=== PATIENT | female | born 1965 | race Caucasian/White ===

== ENCOUNTER 2020-04-12 15:02 | Emergency (ER) | payer MEDICAID ==
--- NOTE | 2020-04-12 16:04 | EDM.PDOC ---
ED HPI GENERAL MEDICAL PROBLEM - General Stated Complaint: HIT HEAD Time Seen by Provider: 04/12/20 15:45 Source of Information: Reports: Patient History Limitations: Reports: No Limitations - History of Present Illness INITIAL COMMENTS - FREE TEXT/NARRATIVE: Patient comes emergency department today with complaints of a scalp laceration that is draining. This patient awoke Friday morning at home after going to the bar with a towel wrapped around her head. After she remove the towel she noted that she had a rather large laceration on the parietal region of her scalp. She is unsure of how the laceration happened to her scalp. She has been cleaning it twice daily and it has been draining and she is concerned for infection. She is unsure if she had a loss of consciousness. She does not complain of a headache visual disturbances weakness dizziness lightheadedness. No nausea or vomiting. No visual acuity changes. No neck pain. No fever no chills. Her tetanus immunization is up-to-date she reports. She denies any other injuries or complaints and just really is concerned of the laceration on her scalp. Head Pain Score (Numeric/FACES): 4 - Related Data Allergies Allergy/AdvReac Type Severity Reaction Status Date / Time No Known Allergies Allergy Verified 04/12/20 21:25 Home Meds: Home Meds FLUoxetine HCl [Prozac] 40 mg PO DAILY 02/08/20 [History] Psyllium Husk [Metamucil] 1 packet PO DAILY PRN 02/08/20 [History] hydroCHLOROthiazide [Hydrochlorothiazide] 12.5 mg PO DAILY 02/08/20 [History] lisinopriL [Lisinopril] 40 mg PO DAILY 02/08/20 [History] Past Medical History Cardiovascular History: Reports: Angina, Heart Failure, Hypertension, Other (See Below) Other Cardiovascular History: BRADYCARDIA Psychiatric History: Reports: Anxiety Endocrine/Metabolic History: Reports: Other (See Below) Other Endocrine/Metabolic History: METABOLIC SYNDROME - Past Surgical History Female Surgical History: Reports: Section, Tubal Ligation Musculoskeletal Surgical History: Reports: Carpal Tunnel, ORIF ED ROS GENERAL - Review of Systems Review Of Systems: Comprehensive ROS is negative, except as noted in HPI. ED EXAM, HEAD INJURY - Physical Exam Exam: See Below Exam Limited By: No Limitations General Appearance: Alert, WD/WN, No Apparent Distress Head: Normocephalic, Scalp Lacerations (The patient has an inverted Y scalp laceration in the parietal region. The top or tail of the Y is 6cm and the two arms of the Y are 5 and 7 cms in length. The skin is well approximated. There is good epithelialization of the scalp laceration. There is some scabbing with some clear serous drainage. There is no induration swelling erythema purulent discharge. There is no crepitus bony deformity contusions abrasions or other signs of trauma to the scalp.). No: Scalp Swelling, Scalp Abrasions, Scalp Ecchymosis, Scalp Hematoma, Scalp Tenderness, Active Bleeding, Hays's Sign, Flap, Facial Abrasions, Facial Ecchymosis, Facial Lacerations, Facial Swelling, Sinus Tenderness, Facial Tenderness, Raccoon Eyes Nexus Criteria: No: Posterior, Midline Cervical Tenderness, Evidence of Intoxication, Altered Level of Consciousness, Focal Neurological Deficit, Painful Distraction Injuries Eyes: Bilateral Eye: EOMI, PERRL Ears: Normal External Exam, Normal Canal, Normal TMs Nose: Normal Inspection, Normal Mucousa Throat/Mouth: Normal Inspection, Normal Lips, Normal Voice Neck: Non-Tender, Full Range of Motion, Normal Alignment Respiratory: No Respiratory Distress, Lungs Clear, Normal Breath Sounds Cardiovascular: Normal Peripheral Pulses, Regular Rate, Rhythm (Female) Exam: Deferred Rectal (Female) Exam: Deferred Back Exam: Normal Inspection, Full Range of Motion Extremities: Normal Inspection, Normal Range of Motion, Normal Capillary Refill Neurologic: adult parole officer II-XII nml As Tested, No Motor/Sensory Deficits, Alert, Normal Mood/Affect, Oriented x 3 Skin: Normal Color, Warm/Dry - [place] Coma Score Best Eye Response ([place]): (4) Open Spontaneously Best Verbal Response ([place]): (5) Oriented Best Motor Response ([place]): (6) Obeys Commands Course - Vital Signs Last Recorded V/S: Last Vital Signs Temp 97.8 F 04/12/20 15:02 Pulse 63 04/12/20 16:10 Resp 16 04/12/20 15:02 BP 201/76 H 04/12/20 16:43 Pulse Ox 99 04/12/20 15:02 - Orders/Labs/Meds Meds: Medications Discontinued Medications Generic Name Dose Route Start Last Admin Trade Name Freq PRN Reason Stop Dose Admin Clonidine HCl 0.1 mg 04/12/20 16:11 04/12/20 16:11 Catapres PO 04/12/20 16:12 0.1 mg ONETIME ONE Administration - Re-Assessments/Exams Free Text/Narrative Re-Assessment/Exam: The patient's blood pressure is noted to be quite elevated systolically in the 200s. She has no chest pain shortness of breath or any other signs of hypertension for initial management of this hypertension she states that she chronically has quite elevated blood pressure when she goes into the clinic into her hospital. I explained to the patient that she is way out of the window for any primary repair of this laceration. She is outside of the 72-hour window of secondary repair without the evidence of infection although this is well approximated and really appears to be healing quite well. There is no signs of infection. I think at this time the best thing is to allow it to continue to heal by secondary intention. Her status is normal and unremarkable. Her blood pressure is quite elevated. She states that she has been taking her medication on a regular basis. She was given a dose of clonidine while in the emergency department and she will check with her primary care provider in the morning to ensure that her blood pressure is improved. Again she has no chest pain or other signs of acute coronary syndromes or symptomatic hypertension. We will discharge her home at this time she is comfortable with this plan and her questions are answered. Departure - Departure Time of Disposition: 16:01 Disposition: Home, Self-Care 01 Clinical Impression: Scalp laceration Qualifiers: Encounter type: initial encounter Qualified Code(s): S01.01XA - Laceration without foreign body of scalp, initial encounter Hypertension Qualifiers: Hypertension type: unspecified Qualified Code(s): I10 - Essential (primary) hypertension - Discharge Information Instructions: Wound Care, Adult, Nonsutured Laceration Care Referrals: Olga Lidia Chadwick MD [Primary Care Provider] - Forms: ED Department Discharge Additional Instructions: Cleanse wound twice daily with soap and water. Eliz dish soap works great. Bacitracin until healed. Carefully clean the area and do not rub aggressively. Watch for signs of infection. Return to the ED if new or worsening symptoms. Follow up with PCP if any concerns.
[2020-04-12] MEDS ORDERED: cloNIDine 0.1 MG Tab PO ONE (16:11)
== END 2020-04-12 16:50 | disposition home or self-care (01) ==
LOC: VM.ED 15:02
DX: S01.81XA Laceration without foreign body of other part of head, initial encounter (principal); I11.0 Hypertensive heart disease with heart failure; I50.9 Heart failure, unspecified; F41.9 Anxiety disorder, unspecified; Z79.899 Other long term (current) drug therapy; X58.XXXA Exposure to other specified factors, initial encounter
CPT/HCPCS: 99282; A9270; 99284

== ENCOUNTER 2021-04-24 22:48 | Emergency (ER) | payer MEDICAID ==
--- NOTE | 2021-04-24 23:10 | EDM.PDOCBH ---
ED HPI GENERAL MEDICAL PROBLEM - General Chief Complaint: Behavioral/Psych Stated Complaint: SELF HARM Time Seen by Provider: 04/24/21 22:50 Source of Information: Reports: Patient, EMS, Police History Limitations: Reports: No Limitations - History of Present Illness INITIAL COMMENTS - FREE TEXT/NARRATIVE: Patient brought to the ER via EMS after police were called to the house by her secondary to patient stating she is going to kill herself and tried cutting her left wrist with a steak knife earlier tonight. Patient admits that she just does not want to live anymore because she works too much she does not get along with her . She admits to drinking 20 shots of fireball between yesterday and the day she thinks maybe today about 7 all day long. She states she has had suicidal tendencies before with cutting in the past. She also states she does not take any of her medicine secondary to she cannot afford it she said last time she has had hypertensive medications probably been 2 months ago. She denies any homicidal ideations or audiovisual hallucinations states she is just tired of living. She has no other complaints at this time She denies any drug usage or intoxication of any other medications Duration: Day(s): Associated Symptoms: Reports: No Other Symptoms - Related Data Allergies Allergy/AdvReac Type Severity Reaction Status Date / Time No Known Allergies Allergy Verified 04/12/20 21:25 Home Meds: Home Meds FLUoxetine HCl [Prozac] 40 mg PO DAILY 02/08/20 [History] Psyllium Husk [Metamucil] 1 packet PO DAILY PRN 02/08/20 [History] hydroCHLOROthiazide [Hydrochlorothiazide] 12.5 mg PO DAILY 02/08/20 [History] lisinopriL [Lisinopril] 40 mg PO DAILY 02/08/20 [History] Past Medical History Cardiovascular History: Reports: Angina, Heart Failure, Hypertension, Other (See Below) Other Cardiovascular History: BRADYCARDIA Psychiatric History: Reports: Anxiety Endocrine/Metabolic History: Reports: Other (See Below) Other Endocrine/Metabolic History: METABOLIC SYNDROME - Past Surgical History Female Surgical History: Reports: Section, Tubal Ligation Musculoskeletal Surgical History: Reports: Carpal Tunnel, ORIF Social & Family History - Family History Family Medical History: No Pertinent Family History - Caffeine Use Caffeine Use: Reports: None ED ROS GENERAL - Review of Systems Review Of Systems: See Below Constitutional: Reports: No Symptoms HEENT: Reports: No Symptoms Respiratory: Reports: No Symptoms Cardiovascular: Reports: No Symptoms Endocrine: Reports: No Symptoms GI/Abdominal: Reports: No Symptoms : Reports: No Symptoms Musculoskeletal: Reports: No Symptoms Skin: Reports: No Symptoms Neurological: Reports: No Symptoms Psychiatric: Reports: Anxiety, Depression, Suicidal Ideation. Denies: Hallucinations, Homicidal Ideation Hematologic/Lymphatic: Reports: No Symptoms Immunologic: Reports: No Symptoms ED EXAM, BEHAVIORAL HEALTH - Physical Exam Exam: See Below Exam Limited By: No Limitations General Appearance: Alert, WD/WN, No Apparent Distress, Other (Patient is crying intermittent episodes of screaming and cussing and she quiets down she does answer all questions appropriately follows all commands) Eye Exam: Bilateral Eye: EOMI, Normal Inspection, PERRL Ears: Normal External Exam, Normal Canal, Hearing Grossly Normal, Normal TMs Nose: Normal Inspection, Normal Mucosa, No Blood Throat/Mouth: Normal Inspection, Normal Lips, Normal Teeth, Normal Gums, Normal Oropharynx, Normal Voice, No Airway Compromise Head: Atraumatic, Normocephalic Neck: Normal Inspection, Supple, Non-Tender, Full Range of Motion Respiratory/Chest: No Respiratory Distress, Lungs Clear, Normal Breath Sounds, No Accessory Muscle Use, Chest Non-Tender Cardiovascular: Normal Peripheral Pulses, Regular Rate, Rhythm, No Edema, No Gallop, No JVD, No Murmur, No Rub GI/Abdominal: Normal Bowel Sounds, Soft, Non-Tender, No Organomegaly, No Distention. No: Guarding, Rigid, Rebound, Tender Extremities: Normal Inspection, Normal Range of Motion, Non-Tender, No Pedal Edema, Normal Capillary Refill Neurological: Alert, Normal Mood/Affect, CN II-XII Intact, Normal Cognition, Normal Reflexes, No Motor/Sensory Deficits, Oriented x 3, Other (Patient has a GCS of 15 cranial nerves II through XII are intact she has equal drug room operator full range of motion of all extremities with 5 /5 strength bilateral upper and lower) Psychiatric: Alert, Normal Affect, Normal Cognition, Oriented, Tearful, Agitated. No: Normal Mood Skin Exam: Warm, Dry, Intact, Normal color, No rash, Other (She has multiple superficial linear abrasions across the left anterior wrist she also has old scarring across the left wrist and left forearm) COURSE, BEHAVIORAL HEALTH COMP - Course Vital Signs: Last Vital Signs Temp 36.7 C 04/24/21 22:50 Pulse 79 04/24/21 22:50 Resp 18 04/24/21 22:50 BP 194/110 H 04/24/21 23:20 Pulse Ox 95 04/24/21 22:50 CBC BMP TSH EKG UA UDS Tylenol aspirin level CBC BMP within normal limits EtOH level 410 patient has ripped out her IVs up running around the room is becoming violent with the provider and the nurse ran out of her room secondary to her possibly coming harmful to herself explained to the patient that she would be chemically sedated with Haldol Benadryl and Ativan we will hold the patient overnight in the ER and try to arrange placement with psych at first availability Spoke with Sukhjinder at the [facility] in regards the patient who agrees that she is clinically sober he has tried to find multiple facilities to take the patient including [facility] and several other facilities Dr. Jeong down in [place] though believes that the patient can go home for no self-harm contract Per Dr. Jeong she does not believe the patient needs inpatient treatment have her sign outpatient for no harm contract per Sukhjinder and discharge the patient home Please see notes that were sent by email or further clarification I tried to call and speak with Dr. Jeong she would not answer the phone or she returned phone calls nor to Sukhjinder get her to call the facility and speak with us Vital signs rechecked for discharge blood pressure 153/61 patient is alert and oriented cranial nerves II through XII are intact she has normal gait Orders, Labs, Meds: Active Orders 24 hr Category Date Time Status EKG Documentation Completion [RC] URGENT Care 04/24/21 23:01 Active Laboratory Tests 04/24/21 04/24/21 04/24/21 Range/Units 22:51 22:51 22:51 WBC 5.0 (4.0-10.0) x10^3/uL RBC 4.44 (4.00-5.50) x10^6/uL Hgb 11.9 L (12.0-16.0) g/dL Hct 37.0 (33.0-47.0) % MCV 83.3 (78.0-93.0) fL MCH 26.8 (26.0-32.0) pg MCHC 32.2 (32.0-36.0) g/dL RDW Coeff of Flori 14.8 (10.0-15.0) % Plt Count 286 (130-400) x10^3/uL Immature Gran % (Auto) 0.00 (0.00-0.43) % Neut % (Auto) 34.0 L (50.0-80.0) % Lymph % (Auto) 50.2 H (25.0-50.0) % [place] % (Auto) 10.6 (2.0-11.0) % Eos % (Auto) 4.0 (0.0-4.0) % Baso % (Auto) 1.2 (0.2-1.2) % Neut # (Auto) 1.7 L (1.8-7.7) x10^3/uL Lymph # (Auto) 2.5 (1.0-4.8) x10^3/uL [place] # (Auto) 0.5 (0.0-0.8) x10^3/uL Eos # (Auto) 0.2 (0.0-0.5) x10^3/uL Baso # (Auto) 0.1 (0.0-0.2) x10^3/uL Immature Gran # (Auto) 0.00 (0.00-0.07) x10^3/uL Sodium 146 H (136-145) mmol/L Potassium 3.5 (3.5-5.1) mmol/L Chloride 112 H (98-107) mmol/L Carbon Dioxide 24 (21-32) mmol/L Anion Gap 13.5 (5-15) mmol/L BUN 20 H (7-18) mg/dL Creatinine 1.0 (0.55-1.02) mg/dL Est Cr Clr Drug Dosing TNP Estimated GFR (MDRD) 57 Glucose 115 H (70-99) mg/dL Calcium 8.4 L (8.5-10.1) mg/dL TSH, Ultra Sensitive 0.861 (0.358-3.74) uIU/mL Urine Color (YELLOW) Urine Appearance (CLEAR) Urine pH (5.0-8.0) Ur Specific [place] Urine Protein (NEGATIVE) mg/dL Urine Glucose (UA) (NEGATIVE) mg/dL Urine Ketones (NEGATIVE) mg/dL Urine Occult Blood (NEGATIVE) Urine Nitrite (NEGATIVE) Urine Bilirubin (NEGATIVE) Urine Urobilinogen (0.2) EU/dL Ur Leukocyte Esterase (NEGATIVE) Urine RBC (NOT SEEN) /HPF Urine WBC (NOT SEEN) /HPF Ur Squamous Epith Cells (NOT SEEN) /HPF Urine Bacteria (NOT SEEN) /HPF Urine Mucus (NOT SEEN) /LPF Salicylates 0.8 L (2.8-20(Therapeutic)) mg/dL Urine Opiates Screen (NEGATIVE) Ur Buprenorphine Scrn (NEGATIVE) Ur Oxycodone Screen (NEGATIVE) Urine Methadone Screen (NEGATIVE) Acetaminophen 0 L (10-30) ug/ml Ur Barbiturates Screen (NEGATIVE) Ur Phencyclidine Scrn (NEGATIVE) Ur Amphetamine Screen (NEGATIVE) U Methamphetamines Scrn (NEGATIVE) Urine MDMA Screen (NEGATIVE) U Benzodiazepines Scrn (NEGATIVE) U Cocaine Metab Screen (NEGATIVE) U Marijuana (THC) Screen (NEGATIVE) Ethyl Alcohol 410 H* (0-3) mg/dL 04/24/21 04/24/21 Range/Units 23:10 23:10 WBC (4.0-10.0) x10^3/uL RBC (4.00-5.50) x10^6/uL Hgb (12.0-16.0) g/dL Hct (33.0-47.0) % MCV (78.0-93.0) fL MCH (26.0-32.0) pg MCHC (32.0-36.0) g/dL RDW Coeff of Flori (10.0-15.0) % Plt Count (130-400) x10^3/uL Immature Gran % (Auto) (0.00-0.43) % Neut % (Auto) (50.0-80.0) % Lymph % (Auto) (25.0-50.0) % [place] % (Auto) (2.0-11.0) % Eos % (Auto) (0.0-4.0) % Baso % (Auto) (0.2-1.2) % Neut # (Auto) (1.8-7.7) x10^3/uL Lymph # (Auto) (1.0-4.8) x10^3/uL [place] # (Auto) (0.0-0.8) x10^3/uL Eos # (Auto) (0.0-0.5) x10^3/uL Baso # (Auto) (0.0-0.2) x10^3/uL Immature Gran # (Auto) (0.00-0.07) x10^3/uL Sodium (136-145) mmol/L Potassium (3.5-5.1) mmol/L Chloride (98-107) mmol/L Carbon Dioxide (21-32) mmol/L Anion Gap (5-15) mmol/L BUN (7-18) mg/dL Creatinine (0.55-1.02) mg/dL Est Cr Clr Drug Dosing Estimated GFR (MDRD) Glucose (70-99) mg/dL Calcium (8.5-10.1) mg/dL TSH, Ultra Sensitive (0.358-3.74) uIU/mL Urine Color Light yellow (YELLOW) Urine Appearance Clear (CLEAR) Urine pH 5.5 (5.0-8.0) Ur Specific [place] <=1.005 Urine Protein Negative (NEGATIVE) mg/dL Urine Glucose (UA) Negative (NEGATIVE) mg/dL Urine Ketones Negative (NEGATIVE) mg/dL Urine Occult Blood Negative (NEGATIVE) Urine Nitrite Negative (NEGATIVE) Urine Bilirubin Negative (NEGATIVE) Urine Urobilinogen 0.2 (0.2) EU/dL Ur Leukocyte Esterase Negative (NEGATIVE) Urine RBC 0-5 (NOT SEEN) /HPF Urine WBC Not seen (NOT SEEN) /HPF Ur Squamous Epith Cells Rare (NOT SEEN) /HPF Urine Bacteria Rare (NOT SEEN) /HPF Urine Mucus Not seen (NOT SEEN) /LPF Salicylates (2.8-20(Therapeutic)) mg/dL Urine Opiates Screen Negative (NEGATIVE) Ur Buprenorphine Scrn Negative (NEGATIVE) Ur Oxycodone Screen Negative (NEGATIVE) Urine Methadone Screen Negative (NEGATIVE) Acetaminophen (10-30) ug/ml Ur Barbiturates Screen Negative (NEGATIVE) Ur Phencyclidine Scrn Negative (NEGATIVE) Ur Amphetamine Screen Negative (NEGATIVE) U Methamphetamines Scrn Negative (NEGATIVE) Urine MDMA Screen Negative (NEGATIVE) U Benzodiazepines Scrn Negative (NEGATIVE) U Cocaine Metab Screen Negative (NEGATIVE) U Marijuana (THC) Screen Negative (NEGATIVE) Ethyl Alcohol (0-3) mg/dL Medications Discontinued Medications Generic Name Dose Route Start Last Admin Trade Name Freq PRN Reason Stop Dose Admin Diphenhydramine HCl 12.5 mg 04/24/21 23:22 Diphenhydramine 50 Mg/Ml Sdv IM 04/24/21 23:23 ONETIME ONE Haloperidol Lactate 10 mg 04/24/21 23:22 Haloperidol Lactate 5 Mg/Ml Sdv IM 04/24/21 23:23 STAT ONE Lisinopril 30 mg 04/24/21 23:03 04/24/21 23:20 Lisinopril 10 Mg Tab PO 04/24/21 23:04 30 mg ONETIME ONE Administration Lorazepam 1 mg 04/24/21 23:22 Lorazepam 2 Mg/Ml Sdv IM 04/24/21 23:23 STAT ONE Departure - Departure Time of Disposition: 01:55 Disposition: Home, Self-Care 01 Condition: Good Clinical Impression: Suicidal ideation, ETOH abuse Hypertension Qualifiers: Hypertension type: unspecified Qualified Code(s): I10 - Essential (primary) hypertension - Discharge Information *PRESCRIPTION DRUG MONITORING PROGRAM REVIEWED*: No *COPY OF PRESCRIPTION DRUG MONITORING REPORT IN PATIENT JAY: No Instructions: Alcohol Abuse and Dependence Information, Adult, Suicidal Feelings: How to Help Yourself Forms: ED Department Discharge Additional Instructions: Make sure you follow-up with your primary care provider in the next 24 hours return here to the emergency room if anything changes or gets worse or you continuing to have suicidal homicidal thoughts or any thoughts of self-harm Make sure you take your medications as directed If anything at all changes return here to the emergency room Sepsis Event Note (ED) - Focused Exam Vital Signs: Vital Signs Temp Pulse Resp BP BP Pulse Ox 04/24/21 23:20 194/110 H 04/24/21 22:50 36.7 C 79 18 194/110 H 95 - Problem List & Annotations (1) ETOH abuse SNOMED Code(s): 50942282 Code(s): F10.10 - ALCOHOL ABUSE, UNCOMPLICATED Status: Acute (2) Hypertension SNOMED Code(s): 42524473 Code(s): I10 - ESSENTIAL (PRIMARY) HYPERTENSION Status: Acute Qualifiers: Hypertension type: unspecified Qualified Code(s): I10 - Essential (primary) hypertension (3) Suicidal ideation SNOMED Code(s): 1107048 Code(s): R45.851 - SUICIDAL IDEATIONS Status: Acute - My Orders Last 24 Hours: My Active Orders 04/24/21 23:01 EKG Documentation Completion [RC] URGENT - Assessment/Plan Last 24 Hours: My Active Orders 04/24/21 23:01 EKG Documentation Completion [RC] URGENT
[2021-04-24 23:16] LABS: BARBITURATE SCREEN,URINE NEGATIVE (NEGATIVE); BENZODIAZEPINES SCREEN,URINE NEGATIVE (NEGATIVE); METHAMPHETAMINE SCREEN, URINE NEGATIVE (NEGATIVE); THC SCREEN,URINE 50 NG/ML NEGATIVE (NEGATIVE)
[2021-04-24 23:17] LABS: BUPRENORPHINE SCREEN,URINE NEGATIVE (NEGATIVE)
[2021-04-24] MEDS: Lisinopril 10 MG Tab PO ONE (23:20)
[2021-04-24] MEDS ORDERED: Haloperidol Lactate 5 MG/ML SDV IM ONE (23:22)
[2021-04-24] MEDS ORDERED: LORazepam 2 MG/ML SDV IM ONE (23:22)
[2021-04-24] MEDS ORDERED: diphenhydrAMINE 50 MG/ML SDV IM ONE (23:22)
[2021-04-24 23:34] LABS: ACETAMINOPHEN 0 ug/ml (10-30); ANION GAP 13.5 mmol/L (5-15); CHLORIDE,CL 112 mmol/L (98-107); SODIUM,NA 146 mmol/L (136-145)
== END 2021-04-25 02:05 | disposition home or self-care (01) ==
LOC: VM.ED 22:48
DX: F10.10 Alcohol abuse, uncomplicated (principal); S60.812A Abrasion of left wrist, initial encounter; S50.812A Abrasion of left forearm, initial encounter; I11.0 Hypertensive heart disease with heart failure; I50.9 Heart failure, unspecified; Z79.899 Other long term (current) drug therapy; Y90.8 Blood alcohol level of 240 mg/100 ml or more; X78.1XXA Intentional self-harm by knife, initial encounter
CPT/HCPCS: 80048; 80143; 80179; 80305; 80307; 81001; 84443; 85025; 99284; 99285; A9270

== ENCOUNTER 2021-06-06 21:04 | Emergency (ER) | payer MEDICAID ==
--- NOTE | 2021-06-06 21:41 | EDM.PDOC ---
ED HPI GENERAL MEDICAL PROBLEM - General Chief Complaint: Drug or Alcohol Abuse Stated Complaint: SCREENING Time Seen by Provider: 06/06/21 21:28 Source of Information: Reports: Patient, Police History Limitations: Reports: Intoxication - History of Present Illness INITIAL COMMENTS - FREE TEXT/NARRATIVE: Police bring patient to ED after being called to a domestic call. she is at home intoxicated and fighting with her . While they are there she make a threat to stab and kill herself. She is wally to the ED to determine if saft to return home. she has no concerns. She is intoxicated Onset: Today, Sudden - Related Data Allergies Allergy/AdvReac Type Severity Reaction Status Date / Time No Known Allergies Allergy Verified 04/12/20 21:25 Home Meds: Home Meds FLUoxetine HCl [Prozac] 40 mg PO DAILY 02/08/20 [History] Psyllium Husk [Metamucil] 1 packet PO DAILY PRN 02/08/20 [History] hydroCHLOROthiazide [Hydrochlorothiazide] 12.5 mg PO DAILY 02/08/20 [History] lisinopriL [Lisinopril] 40 mg PO DAILY 02/08/20 [History] Past Medical History Cardiovascular History: Reports: Angina, Heart Failure, Hypertension, Other (See Below) Other Cardiovascular History: BRADYCARDIA Psychiatric History: Reports: Anxiety Endocrine/Metabolic History: Reports: Other (See Below) Other Endocrine/Metabolic History: METABOLIC SYNDROME - Past Surgical History Female Surgical History: Reports: Section, Tubal Ligation Musculoskeletal Surgical History: Reports: Carpal Tunnel, ORIF Social & Family History - Family History Family Medical History: No Pertinent Family History - Caffeine Use Caffeine Use: Reports: None ED ROS GENERAL - Review of Systems Review Of Systems: See Below Constitutional: Reports: No Symptoms HEENT: Reports: No Symptoms Respiratory: Reports: No Symptoms Cardiovascular: Reports: No Symptoms Endocrine: Reports: No Symptoms GI/Abdominal: Reports: No Symptoms : Reports: No Symptoms Musculoskeletal: Reports: No Symptoms Skin: Reports: No Symptoms Neurological: Reports: No Symptoms Psychiatric: Reports: No Symptoms Hematologic/Lymphatic: Reports: No Symptoms Immunologic: Reports: No Symptoms ED EXAM, GENERAL - Physical Exam Exam: See Below Exam Limited By: Intoxication General Appearance: Alert, No Apparent Distress Ears: Normal External Exam, Normal Canal, Hearing Grossly Normal, Normal TMs Ear Exam: Bilateral Ear: Auricle Normal, Canal Normal, TM normal Nose: Normal Inspection, Normal Mucosa, No Blood Throat/Mouth: Normal Inspection, Normal Lips, Normal Teeth, Normal Gums, Normal Oropharynx, Normal Voice, No Airway Compromise Head: Atraumatic, Normocephalic Neck: Normal Inspection, Supple, Non-Tender, Full Range of Motion Respiratory/Chest: No Respiratory Distress, Lungs Clear, Normal Breath Sounds, No Accessory Muscle Use, Chest Non-Tender Cardiovascular: Normal Peripheral Pulses, Regular Rate, Rhythm, No Edema, No Gallop, No JVD, No Murmur, No Rub GI/Abdominal: Normal Bowel Sounds, Soft, Non-Tender, No Organomegaly, No Distention, No Abnormal Bruit, No Mass Back Exam: Normal Inspection, Full Range of Motion, NT Extremities: Normal Inspection, Normal Range of Motion, Non-Tender, Normal Capillary Refill, No Pedal Edema Neurological: Alert, Oriented, CN II-XII Intact, Normal Cognition, Normal Gait, Normal Reflexes, No Motor/Sensory Deficits Psychiatric: Normal Affect, Normal Mood Skin Exam: Warm, Dry, Intact, Normal Color, No Rash Lymphatic: No Adenopathy Course - Orders/Labs/Meds Orders: Active Orders 24 hr Category Date Time Status URINE DRUG SCREEN,POC [POC] Stat Lab 06/06/21 21:29 Ordered Departure - Departure Time of Disposition: 21:40 Disposition: Home, Self-Care 01 Condition: Good Clinical Impression: ETOH abuse - Discharge Information *PRESCRIPTION DRUG MONITORING PROGRAM REVIEWED*: Not Applicable *COPY OF PRESCRIPTION DRUG MONITORING REPORT IN PATIENT JAY: Not Applicable Instructions: Substance Use Disorder and Mental Illness Forms: ED Department Discharge - Problem List & Annotations (1) ETOH abuse SNOMED Code(s): 10616442 Code(s): F10.10 - ALCOHOL ABUSE, UNCOMPLICATED Status: Acute Current Visit: Yes - My Orders Last 24 Hours: My Active Orders 06/06/21 21:29 URINE DRUG SCREEN,POC [POC] Stat - Assessment/Plan Last 24 Hours: My Active Orders 06/06/21 21:29 URINE DRUG SCREEN,POC [POC] Stat Assessment:: ETOH intoxication Plan: Stop drinking Try to attend group/therapy for addiction counseling Meet with therapists with your
[2021-06-06 21:45] LABS: BUPRENORPHINE,URINE NEGATIVE (NEGATIVE); MARIJUANA,URINE NEGATIVE (NEGATIVE); METHYLENEDIOXYMETHAMP,UR NEGATIVE (NEGATIVE); PHENCYCLIDINE,URINE NEGATIVE (NEGATIVE)
== END 2021-06-06 21:42 | disposition home or self-care (01) ==
LOC: VM.ED 21:04
DX: F10.129 Alcohol abuse with intoxication, unspecified (principal); I11.0 Hypertensive heart disease with heart failure; I50.9 Heart failure, unspecified; Z79.899 Other long term (current) drug therapy
CPT/HCPCS: 80305-QW; 99284

== ENCOUNTER 2022-04-08 15:32 | Emergency (ER) | payer MEDICAID | END 2022-04-08 16:05 | disposition left against medical advice (07) | LOC: VM.ED 15:32 | DX: F10.10 Alcohol abuse, uncomplicated (principal); Z79.899 Other long term (current) drug therapy | CPT/HCPCS: 99284 ==

== ENCOUNTER 2022-05-20 22:30 | Emergency (ER) | payer MEDICAID | END 2022-05-21 00:41 | disposition home or self-care (01) | LOC: VM.ED 22:30 → MERGE 22:30 → VM.ED 05-21 00:41 | DX: R45.851 Suicidal ideations (principal); F10.10 Alcohol abuse, uncomplicated; Z79.899 Other long term (current) drug therapy | CPT/HCPCS: 99283; 99284 ==

== ENCOUNTER 2022-05-21 19:27 | Emergency (ER) | payer MEDICAID | END 2022-05-21 19:49 | LOC: VM.ED 19:27 | DX: Z02.89 Encounter for other administrative examinations (principal); I11.0 Hypertensive heart disease with heart failure; I50.9 Heart failure, unspecified; Z98.890 Other specified postprocedural states; Z79.899 Other long term (current) drug therapy | CPT/HCPCS: 99283 ==